=== PATIENT | female | born 1960 | race Caucasian/White ===

== ENCOUNTER → 2017-01-13 | Outpatient (CLI) | payer OTHER | LOC: FIMAGING 15:14 | DX: Z12.31 Encounter for screening mammogram for malignant neoplasm of breast (principal) | CPT/HCPCS: G0202 ==

== ENCOUNTER → 2018-01-31 | Outpatient (CLI) | payer OTHER | LOC: FIMAGING 07:40 | PROVIDERS: ATTEND Nurse Practitioner Women's Health | DX: Z12.31 Encounter for screening mammogram for malignant neoplasm of breast (principal) ==

== ENCOUNTER → 2019-02-06 | Outpatient (CLI) | payer OTHER | LOC: FIMAGING 08:11 | PROVIDERS: ATTEND Nurse Practitioner Women's Health | DX: Z12.31 Encounter for screening mammogram for malignant neoplasm of breast (principal) ==